=== PATIENT | male | born 1980 | race Caucasian/White ===

== ENCOUNTER → 2022-02-07 10:20 | Outpatient (REF) | payer OTHER, SELFPAY | LOC: HO.SL 10:20 | PROVIDERS: PCP Physician Assistant Medical; Visit Provider Nurse Practitioner Family | DX: R06.83 Snoring (principal); R40.0 Somnolence | CPT/HCPCS: 95806 ==

== ENCOUNTER → 2022-04-15 09:32 | Outpatient (BNVA) | payer OTHER, SELFPAY | PROVIDERS: PCP Physician Assistant Medical; Visit Provider Nurse Practitioner Family | DX: Z13.89 Encounter for screening for other disorder (principal) ==